=== PATIENT | male | born 1940 | race Caucasian/White ===

== ENCOUNTER → 2016-04-14 | Outpatient (CLI) | payer MEDICARE ==
--- NOTE | 2016-04-14 14:56 | CT ---
EXAM DESCRIPTION: CT ABDOMEN WITHOUT IV CONTRAST CLINICAL HISTORY: CHRONIC KIDNEY DISEASE COMPARISON: 03 July 2014. TECHNIQUE: Transaxial images were obtained without intravenous or oral contrast media. Sagittal and coronal reconstruction was performed. FINDINGS: The lung bases are free of acute infiltrate or fluid. Dense coronary artery calcification is noted. The liver and spleen are unremarkable. No biliary ductal dilatation is observed. The gallbladder is normal in appearance. No adrenal masses are detected. The pancreas is normal in appearance. Imaging of the kidneys reveals no evidence of hydronephrosis mass or calcification a large simple cyst is observed along lateral margin of the left kidney measuring 4.8 cm in diameter. A small simple cyst is also observed at the lower pole of the right kidney. Calcific atherosclerotic change is observed in the abdominal aorta without evidence of aneurysmal dilatation. No bowel abnormality is detected. Degenerative changes are observed the lumbar spine. IMPRESSION: 1. Simple cysts are detected in both kidneys essentially unchanged from the prior exam. 2. Dense coronary artery calcification is noted. Electronically signed by: Rolando Groves MD 04/14/2016 14:54
== END ==
LOC: CT 10:32
PROVIDERS: ATTEND Internal Medicine Nephrology
DX: N18.4 Chronic kidney disease, stage 4 (severe) (principal); N28.1 Cyst of kidney, acquired

== ENCOUNTER → 2016-05-14 | Outpatient (CLI) | payer MEDICARE | LOC: GMAL 15:58 | PROVIDERS: ATTEND Family Medicine | DX: D51.3 Other dietary vitamin B12 deficiency anemia (principal); D53.9 Nutritional anemia, unspecified; R53.82 Chronic fatigue, unspecified ==

== ENCOUNTER → 2016-06-05 | Outpatient (CLI) | payer MEDICARE ==
--- NOTE | 2016-06-08 07:28 | US ---
EXAM DESCRIPTION: Venous Doppler sonogram left lower extremity CLINICAL HISTORY: Pain and swelling. Assess for DVT COMPARISON: [None Available.] TECHNIQUE: Venous Doppler left lower extremity deep venous system from the common femoral vein to the calf veins FINDINGS: Normal venous flow with color Doppler. Normal compressibility. Normal augmentation of flow with compression maneuvers IMPRESSION: No deep vein thrombosis left lower extremity Electronically signed by: Rios Velasco MD 06/08/2016 7:27 AM CDT
--- NOTE | 2016-06-08 07:28 | US ---
EXAM DESCRIPTION: Venous Doppler sonogram right lower extremity CLINICAL HISTORY: Pain and swelling. Evaluate for DVT COMPARISON: [None Available.] TECHNIQUE: Venous Doppler right lower extremity deep venous system from the common femoral vein to the calf veins FINDINGS: Normal venous flow with color Doppler. Normal compressibility. Normal augmentation of flow with compression maneuvers IMPRESSION: No deep vein thrombosis right lower extremity Electronically signed by: Rios Velasco MD 06/08/2016 7:26 AM CDT
== END | disposition home or self-care (01) ==
LOC: US 14:38
PROVIDERS: ATTEND Family Medicine
DX: I80.222 Phlebitis and thrombophlebitis of left popliteal vein (principal); I80.231 Phlebitis and thrombophlebitis of right tibial vein

== ENCOUNTER → 2016-07-15 | Outpatient (CLI) | payer MEDICARE | END | disposition home or self-care (01) | LOC: BFHH 12:20 | PROVIDERS: ATTEND Family Medicine | DX: M19.91 Primary osteoarthritis, unspecified site (principal); I25.10 Atherosclerotic heart disease of native coronary artery without angina pectoris; Z99.81 Dependence on supplemental oxygen; L29.8 Other pruritus; Z79.4 Long term (current) use of insulin ==

== ENCOUNTER → 2016-07-20 | Outpatient (CLI) | payer MEDICARE ==
--- NOTE | 2016-07-21 03:43 | US ---
Procedure: US LOWER EXTREMITY VEINS LIMITED/UNILATERAL/FOLLOW UP Exam Date: 07/20/2016 Ordering Provider: ANKIT ZARCO Clinical Indication: CELLULITIS Comparison: 06/05/2016 Real time ultrasound was utilized for evaluation of the deep veins of the Right lower extremity. Color Doppler and pulse Doppler analysis was performed, including B-mode/grayscale imaging, Doppler spectral analysis and color flow analysis. Real time visualization of the right lower extremity deep veins was accomplished. Customer Assistance Associate images recorded. The deep veins demonstrated no abnormal intraluminal signal. The pulse Doppler and color Doppler flow patterns demonstrated normal venous flow with respiratory variation. There was increased flow with distal augmentation maneuvers. IMPRESSION: There were no findings to suggest intraluminal clot or obstruction in the deep veins of the right lower extremity. Electronically signed by: Kojo Vargas MD 07/21/2016 3:42 AM CDT
== END | disposition home or self-care (01) ==
LOC: US 15:25
PROVIDERS: ATTEND Family Medicine
DX: M79.604 Pain in right leg (principal); I80.201 Phlebitis and thrombophlebitis of unspecified deep vessels of right lower extremity; L03.115 Cellulitis of right lower limb